=== PATIENT | male | born 1945 | race Two or more races ===

== ENCOUNTER 2018-05-12 18:57 | Emergency (ER) | payer OTHER ==
[~2018-05-12] VITALS: Ht 167.6 cm; Wt 81.6 kg
[2018-05-12 19:15] VITALS: BP 160/96
--- NOTE | 2018-05-12 19:17 | Emergency Room Report ---
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 He reports he was not sure that he stuck himself, but when he took his glove off, he noticed a tiny dot and then squeezed it and then blood came out. He reports he was using a 23g needle. He does not want HIV prophylaxis and less patient's rapid HIV comes back positive. He reports he will follow up at [facility]. Allergies: Coded Allergies: PENICILLINS (Verified Allergy, Unknown, 05/12/18) Patient History Past Medical History: see triage record Reviewed Nursing Documentation: PMH: Agreed; PSxH: Agreed Nursing Documentation-PMH Past Medical History: No History, Except For Hx Hypertension: Yes Review of Systems All Other Systems: negative except mentioned in HPI Physical Exam Vital Signs Date Time Temp Pulse Resp B/P (MAP) Pulse Ox O2 Delivery O2 Flow Rate FiO2 05/12/18 19:03 97.6 96 14 160/96 96 Room Air 97.5 Sp02 EP Interpretation: reviewed, normal General Appearance: no apparent distress, alert, non-toxic Head: normocephalic Eyes: bilateral eye normal inspection, bilateral eye EOMI ENT: normal ENT inspection, hearing grossly normal, normal voice Neck: normal inspection, full range of motion, supple, supple/symm/no masses Respiratory: chest non-tender, lungs clear, normal breath sounds, chest symmetrical, palpation of chest normal Cardiovascular #1: regular rate, rhythm Gastrointestinal: normal inspection, non-distended, no guarding, no rebound Rectal: deferred Musculoskeletal: back normal, gait/station normal Neurologic: alert, responsive, edge stripper III-XII nml as tested, motor strength/tone normal, sensory intact, speech normal Psychiatric: judgement/insight normal, memory normal, mood/affect normal Skin: normal color, no rash, warm/dry, normal turgor, other - Punctate puncture wound to the volar aspect of right thumb fat pad, no active bleeding Lymphatic: no adenopathy Medical Decision Making Diagnostic Impression: Primary Impression: Needlestick injury of finger ER Course Source patient as well as this patient had liver function, rapid HIV, hep C antibody, hep B surface antigen sent.t rapid is po This patient does not want to have HIV prophylaxis initiated unless source Patient tests positive. He did wash the wound thoroughly with soap and water, as well as chlorhexidine. Last Vital Signs Date Time Temp Pulse Resp B/P (MAP) Pulse Ox O2 Delivery O2 Flow Rate FiO2 05/12/18 19:03 97.6 96 14 160/96 96 Room Air 97.5 Disposition: HOME, SELF-CARE Condition: Stable GINI CLARK M.D May 12, 2018 19:17
[2018-05-12 20:00] VITALS: BP 130/80
== END 2018-05-12 20:00 | disposition home or self-care (01) ==
LOC: EMR 19:39
DX: S61.031A Puncture wound without foreign body of right thumb without damage to nail, initial encounter (principal); W46.0XXA Contact with hypodermic needle, initial encounter; Y93.F9 Activity, other caregiving; Y92.238 Other place in hospital as the place of occurrence of the external cause; Y99.0 Civilian activity done for income or pay; Z88.0 Allergy status to penicillin; I10 Essential (primary) hypertension
CPT/HCPCS: 99282